=== PATIENT | male | born 1985 | race Two or more races ===

== ENCOUNTER 2023-07-16 09:02 | Emergency (ER) | payer SELFPAY ==
[~2023-07-16] VITALS: Ht 177.8 cm; Wt 110.9 kg
[2023-07-16 09:45] VITALS: BP 157/94; PULSE 98; RESP 18; TEMP 97.7; O2SAT 96
[2023-07-16] MEDS ORDERED: cefTRIAXone SOD 1,000 MG VL IM ONE (10:15)
[2023-07-16] MEDS ORDERED: AZIT500T66 PO (10:26)
[2023-07-16] MEDS ORDERED: BENZ200C64 PO (10:26)
== END 2023-07-16 10:38 | disposition home or self-care (01) ==
LOC: ER 09:02
DX: J03.90 Acute tonsillitis, unspecified (principal); J20.9 Acute bronchitis, unspecified
CPT/HCPCS: 71046; 96372; 99283; J0696